=== PATIENT | female | born 1975 | race African-American/Black ===

== ENCOUNTER 2017-01-11 21:25 | Emergency (ER) | payer SELFPAY ==
[2017-01-11 20:24] LABS: WBC (NOT ORDERED) (RFLEX) 0 (0-5)
[2017-01-11 20:39] LABS: ASCORBIC ACID (UR NOT ORDER) NEG (NEG); BILIRUBIN, URINE NEGATIVE (NEG); ER URINALYSIS TAT 0 Hrs 19 Mins; KETONE, URINE TRACE MG/DL (NEG); LEUKOCYTE ESTERASE(NOT OR NEG (NEG); NITRITE (URINE) NEG (NEG)
== END 2017-01-11 21:45 | disposition home or self-care (01) ==
LOC: ER 21:25
PROVIDERS: Physician Assistant
DX: M54.5 Low back pain (principal)
CPT/HCPCS: 72100; 81001; 84703; 99283; A9270-GY